=== PATIENT | female | born 1960 | race Caucasian/White ===

== ENCOUNTER → 2025-01-26 13:22 | Outpatient (REF) | payer OTHER, SELFPAY | LOC: HWRAD 13:22 | PROVIDERS: ATTENDING PHYSICIAN Podiatrist Foot & Ankle Surgery; FAMILY PHYSICIAN Family Medicine | DX: M76.62 Achilles tendinitis, left leg (principal); M76.61 Achilles tendinitis, right leg | CPT/HCPCS: 73630 ==

== ENCOUNTER → 2025-03-30 16:11 | Outpatient (REF) | payer OTHER, SELFPAY | LOC: RAD 16:11 | PROVIDERS: ATTENDING PHYSICIAN Physician Assistant Medical | DX: M25.561 Pain in right knee (principal) | CPT/HCPCS: 73564 ==

== ENCOUNTER → 2025-04-09 09:36 | Outpatient (REF) | payer OTHER, SELFPAY | LOC: PAVMRI 09:36 | PROVIDERS: ATTENDING PHYSICIAN Podiatrist Foot & Ankle Surgery; FAMILY PHYSICIAN Family Medicine | DX: M71.572 Other bursitis, not elsewhere classified, left ankle and foot (principal); M76.62 Achilles tendinitis, left leg | CPT/HCPCS: 73721 ==

== ENCOUNTER → 2025-05-10 06:33 | Outpatient (REF) | payer OTHER, SELFPAY | LOC: MRI 06:33 | PROVIDERS: ATTENDING PHYSICIAN Physician Assistant; FAMILY PHYSICIAN Family Medicine | DX: M25.561 Pain in right knee (principal) | CPT/HCPCS: 73721 ==

== ENCOUNTER 2025-07-19 06:34 | Outpatient (RCR) | payer OTHER, SELFPAY | END 2025-07-19 23:59 | disposition home or self-care (01) | LOC: RPT 06:34 | PROVIDERS: ATTENDING PHYSICIAN Student in an Organized Health Care Education/Training Program; FAMILY PHYSICIAN Family Medicine | DX: M76.62 Achilles tendinitis, left leg (principal); Z73.6 Limitation of activities due to disability; R26.2 Difficulty in walking, not elsewhere classified; M62.81 Muscle weakness (generalized) | CPT/HCPCS: 97110; 97161 ==

== ENCOUNTER → 2025-08-24 13:30 | Outpatient (REF) | payer OTHER, SELFPAY | LOC: HWRCS 13:30 | PROVIDERS: ATTENDING PHYSICIAN Family Medicine | DX: Z85.820 Personal history of malignant melanoma of skin (principal); I10 Essential (primary) hypertension; R01.1 Cardiac murmur, unspecified; R00.2 Palpitations | CPT/HCPCS: 93306 ==